=== PATIENT | female | born 1985 | race African-American/Black ===

== ENCOUNTER 2016-11-09 15:55 | Emergency (ER) | payer OTHER ==
[~2016-11-09] VITALS: Ht 170.2 cm; Wt 61.3 kg
[2016-11-09] MEDS ORDERED: PNV1TABL11 PO (16:11)
[2016-11-09 16:27] LABS: HEMOGLOBIN 12.7 g/dL (11.7-16.4)
[2016-11-09 16:43] LABS: ASPARTATE AMINO TRANSFERASE 14 U/L (15-37); BLOOD UREA NITROGEN 6 mg/dL (7-18)
[2016-11-09] MEDS ORDERED: SODIUM CHLORIDE FLUSH 10ML SYR IVF ONE (17:30)
[2016-11-09] MEDS ORDERED: SODIUM CHLORIDE 0.9% 1,000ML IVBOLUS ONE (17:30)
[2016-11-09 19:04] VITALS: BP 109/56
== END 2016-11-09 19:07 | disposition home or self-care (01) ==
LOC: ED 17:14
DX: O34.81 Maternal care for other abnormalities of pelvic organs, first trimester (principal); N83.202 Unspecified ovarian cyst, left side; Z3A.10 10 weeks gestation of pregnancy
CPT/HCPCS: 36415; 76801; 80053; 81003; 84702; 85025; 85610; 86901; 99285

== ENCOUNTER 2017-08-01 15:56 | Outpatient (CLI) | payer OTHER ==
[~2017-08-01] VITALS: Ht 170.2 cm; Wt 72.7 kg
[~2017-08-01 15:56] MED LIST: PNV1TABL11 PO
[2017-08-01 16:05] VITALS: BP 111/71
[2017-08-01 17:10] LABS: MICROSCOPIC NOT IND
== END 2017-08-01 18:07 | disposition home or self-care (01) ==
LOC: LDOP 15:56
PROVIDERS: ATTEND Obstetrics & Gynecology
DX: O26.893 Other specified pregnancy related conditions, third trimester (principal); R10.9 Unspecified abdominal pain; Z3A.31 31 weeks gestation of pregnancy
CPT/HCPCS: 36415; 59025; 81003; 82731; 87086; 99201; G0463

== ENCOUNTER 2017-09-16 22:08 | Outpatient (CLI) | payer OTHER ==
[~2017-09-16] VITALS: Ht 170.2 cm; Wt 77.3 kg
[2017-09-16 22:28] VITALS: BP 114/71
[2017-09-17] MEDS ORDERED: OXYcodone/APAP 10/325MG TABLET ONE (00:35)
[2017-09-17] MEDS ORDERED: OXYcodone/APAP 10/325MG TABLET PO ONE (01:00)
== END 2017-09-17 01:03 | disposition home or self-care (01) ==
LOC: LDOP 22:08
PROVIDERS: ATTEND Obstetrics & Gynecology
DX: O26.893 Other specified pregnancy related conditions, third trimester (principal); O62.9 Abnormality of forces of labor, unspecified; R10.9 Unspecified abdominal pain; Z3A.00 Weeks of gestation of pregnancy not specified
CPT/HCPCS: 59025; 99211; G0463

== ENCOUNTER 2017-09-17 12:39 | Inpatient (IN) | payer OTHER ==
[~2017-09-17] VITALS: Ht 170.2 cm; Wt 74.1 kg
[2017-09-17] MEDS: LACTATED RINGERS 1,000 ML IV SCH ×2 (12:57→14:49)
[2017-09-17] MEDS ORDERED: OXYTOCIN 30U/ 0.9% NaCL 500ML 500 ML IV ONE (12:57)
[2017-09-17] MEDS ORDERED: FENTANYL PF 100 MCG/2ML IVPush PRN (13:00)
[2017-09-17] MEDS ORDERED: FENTANYL PF 100 MCG/2ML IV PRN (13:00)
[2017-09-17] MEDS ORDERED: FENTANYL PF 100 MCG/2ML ONE ×2 (13:09→17:36)
[2017-09-17 13:16] VITALS: BP 125/79
[2017-09-17 13:26] LABS: BASOPHILS # (AUTO) 0.02 x10^3/uL (0-0.1); BASOPHILS % (AUTO) 0 % (0-1); EOSINOPHILS # (AUTO) 0.03 x10^3/uL (0-0.4); EOSINOPHILS % (AUTO) 0 % (1-7); LYMPHOCYTES # (AUTO) 1.72 x10^3/uL (1-3.4); LYMPHOCYTES % (AUTO) 15 % (22-44); MD NO; MEAN CORPUSCULAR HEMOGLOBIN 32.1 pg (27.0-34.8); MEAN CORPUSCULAR HGB CONC 33.7 g/dL (32.4-35.8); MEAN CORPUSCULAR VOLUME 95.5 fL (80-100); MEAN PLATELET VOLUME 7.4 fL (7.4-10.4); MONOCYTES # (AUTO) 0.89 x10^3/uL (0.2-0.8); MONOCYTES % (AUTO) 8 % (2-9); NEUTROPHILS # (AUTO) 8.72 x10^3/uL (1.8-6.8); NEUTROPHILS % (AUTO) 77 % (42-75); PLATELET COUNT 277 x10^3/uL (130-400); RED BLOOD COUNT 4.24 x10^6/uL (3.82-5.3); RED CELL DISTRIBUTION WIDTH 14.6 % (9.6-15.2)
[2017-09-17] MEDS ORDERED: OXYTOCIN 30U/ 0.9% NaCL 500ML 500 ML ONE ×2 (13:26→22:42)
[2017-09-17] MEDS ORDERED: LIDOCAINE 1%, 20ML ONE (13:26)
[2017-09-17] MEDS ORDERED: MISOPROSTOL 200 MCG TABLET ONE (13:26)
[2017-09-17] MEDS ORDERED: NEWBORN KIT ONE (13:26)
[2017-09-17] MEDS: PLEASE ENTER HEIGHT AND WEIGHT MC SCH ×2 (13:30→21:30)
[2017-09-17] MEDS ORDERED: FENTANYL/BUPIV./NS/PF 250 ML EPIDCONT SCH ×2 (13:33→14:47)
[2017-09-17] MEDS ORDERED: LACTATED RINGERS 1,000 ML IV SCH ×2 (13:33→14:47)
[2017-09-17] MEDS ORDERED: BUPIVACAINE/PF 0.25% ONE ×2 (13:55→13:56)
[2017-09-17] MEDS ORDERED: FENTANYL/BUPIV./NS/PF 250 ML EPIDCONT ONE (13:56)
[2017-09-17] MEDS ORDERED: LACTATED RINGERS 1,000 ML IVBOLUS PRN ×2 (14:00→15:00)
[2017-09-17] MEDS ORDERED: ONDANSETRON 2MG/ML, 2ML IVPush PRN (15:00)
[2017-09-17] MEDS ORDERED: NALOXONE 0.4 MG/ML, 1ML IVPush PRN (15:00)
[2017-09-17] MEDS ORDERED: DIPHENHYDRAMINE 50 MG/ML, 1ML IVPush PRN (15:00)
[2017-09-17] MEDS ORDERED: EPHEDRINE 50 MG/ML, 1ML IVPush PRN (15:00)
[2017-09-17] MEDS: OXYTOCIN 30U/ 0.9% NaCL 500ML 500 ML IV SCH (21:52)
[2017-09-17] MEDS ORDERED: MISOPROSTOL 200 MCG TABLET PR PRN (22:00)
[2017-09-17] MEDS ORDERED: MEASLES,MUMPS&RUBELLA VACC/PF 0.5 ML SQ PRN (22:00)
[2017-09-17] MEDS ORDERED: MAGNESIUM HYDROXIDE 8%, 30ML UDC PO PRN (22:00)
[2017-09-17] MEDS ORDERED: CALCIUM CARBONATE 500 MG TAB.CHEW PO PRN (22:00)
[2017-09-17] MEDS ORDERED: RHOGAM FROM BLOOD BANK 1 NOTE EA IM/IV ONE (22:00)
[2017-09-17] MEDS ORDERED: DIPH,PERTUSS(ACELL),TET VAC/PF NC IM-VACC PRN (22:00)
[2017-09-17] MEDS ORDERED: OXYcodone/APAP 5/325MG TABLET PO PRN (22:00)
[2017-09-17] MEDS ORDERED: ONDANSETRON 2MG/ML, 2ML IV PRN (22:00)
[2017-09-17] MEDS ORDERED: OXYcodone IR 5MG TABLET PO PRN (22:00)
[2017-09-17] MEDS ORDERED: IBUPROFEN 600 MG TABLET ONE (22:42)
[2017-09-17] MEDS: IBUPROFEN 600 MG TABLET PO PRN (23:00)
[2017-09-17 23:50] VITALS: BP 120/77
[2017-09-18 04:00] VITALS: BP 105/69
[2017-09-18] MEDS: IBUPROFEN 600 MG TABLET PO PRN ×3 (04:57→18:08)
[2017-09-18 06:05] LABS: BASOPHILS # (AUTO) 0.05 x10^3/uL (0-0.1); BASOPHILS % (AUTO) 0 % (0-1); EOSINOPHILS # (AUTO) 0.05 x10^3/uL (0-0.4); EOSINOPHILS % (AUTO) 0 % (1-7); LYMPHOCYTES # (AUTO) 1.75 x10^3/uL (1-3.4); LYMPHOCYTES % (AUTO) 10 % (22-44); MD NO; MEAN CORPUSCULAR HEMOGLOBIN 32.1 pg (27.0-34.8); MEAN CORPUSCULAR HGB CONC 33.9 g/dL (32.4-35.8); MEAN CORPUSCULAR VOLUME 94.6 fL (80-100); MEAN PLATELET VOLUME 7.9 fL (7.4-10.4); MONOCYTES # (AUTO) 1.32 x10^3/uL (0.2-0.8); MONOCYTES % (AUTO) 8 % (2-9); NEUTROPHILS # (AUTO) 14.32 x10^3/uL (1.8-6.8); NEUTROPHILS % (AUTO) 82 % (42-75); PLATELET COUNT 254 x10^3/uL (130-400); RED BLOOD COUNT 3.84 x10^6/uL (3.82-5.3)
[2017-09-18] MEDS: OXYTOCIN 30U/ 0.9% NaCL 500ML 500 ML IV SCH ×3 (07:52→19:14)
[2017-09-18 08:00] VITALS: BP 98/55
[2017-09-18] MEDS: DOCUSATE 100 MG CAPSULE PO PRN (08:23)
[2017-09-18] MEDS: PRENATAL VIT/IRON/FA 1 EACH TABLET PO SCH (08:23)
[2017-09-18 12:27] VITALS: BP 114/78
[2017-09-18 16:00] VITALS: BP 108/68
[2017-09-18 20:10] VITALS: BP 113/69
[2017-09-19] MEDS: IBUPROFEN 600 MG TABLET PO PRN ×2 (04:39→14:50)
[2017-09-19] MEDS: DOCUSATE 100 MG CAPSULE PO PRN (08:31)
[2017-09-19] MEDS: PRENATAL VIT/IRON/FA 1 EACH TABLET PO SCH (08:31)
[2017-09-19 08:45] VITALS: BP 103/68
[2017-09-19] MEDS ORDERED: IBUP-1222 PO (13:33)
== END 2017-09-19 15:45 | disposition home or self-care (01) | DRG 775 ==
LOC: LDOP 12:39 → LDIP 12:56 → 2NW 23:44
PROVIDERS: ADMIT Obstetrics & Gynecology; ATTEND Obstetrics & Gynecology
PROC: 10E0XZZ Delivery of Products of Conception, External Approach (ICD-10-PCS; principal; 2017-09-17)
PROC: 0UQGXZZ Repair Vagina, External Approach (ICD-10-PCS; 2017-09-17)
PROC: 3E0R3BZ Introduction of Anesthetic Agent into Spinal Canal, Percutaneous Approach (ICD-10-PCS; 2017-09-17)
PROC: 00HU33Z Insertion of Infusion Device into Spinal Canal, Percutaneous Approach (ICD-10-PCS; 2017-09-17)
DX: O99.02 Anemia complicating childbirth (principal); D57.1 Sickle-cell disease without crisis; O71.4 Obstetric high vaginal laceration alone; Z37.0 Single live birth; Z3A.38 38 weeks gestation of pregnancy
CPT/HCPCS: 36415; 82803; 85025; 86850; 86900; J3010; J2590; J7120

== ENCOUNTER → 2018-11-23 | Outpatient (CLI) | payer OTHER ==
[~2018-11-23] MED LIST changes: +IBUP-1222 PO; +None at This Time
[2018-11-23 11:49] LABS: BASOPHILS # (AUTO) 0.02 x10^3/uL (0-0.1); BASOPHILS % (AUTO) 1 % (0-1); EOSINOPHILS # (AUTO) 0.05 x10^3/uL (0-0.4); EOSINOPHILS % (AUTO) 1 % (1-7); LYMPHOCYTES # (AUTO) 2.04 x10^3/uL (1-3.4); LYMPHOCYTES % (AUTO) 52 % (22-44); MD NO; MEAN CORPUSCULAR HEMOGLOBIN 31.1 pg (27.0-34.8); MEAN CORPUSCULAR HGB CONC 33.1 g/dL (32.4-35.8); MEAN CORPUSCULAR VOLUME 93.9 fL (80-100); MEAN PLATELET VOLUME 7.6 fL (7.4-10.4); MONOCYTES # (AUTO) 0.22 x10^3/uL (0.2-0.8); MONOCYTES % (AUTO) 6 % (2-9); NEUTROPHILS # (AUTO) 1.58 x10^3/uL (1.8-6.8); NEUTROPHILS % (AUTO) 40 % (42-75); PLATELET COUNT 300 x10^3/uL (130-400); RED BLOOD COUNT 4.63 x10^6/uL (3.82-5.3); RED CELL DISTRIBUTION WIDTH 13.7 % (9.6-15.2)
[2018-11-23 11:58] LABS: MICROSCOPIC NOT IND
[2018-11-23 11:59] LABS: ALANINE AMINOTRANSFERASE 18 U/L (12-78); ANION GAP 5 mmol/L (5-15); CALCIUM 8.8 mg/dL (8.5-10.1); CHLORIDE 111 mmol/L (98-107); CREATININE 0.94 mg/dL (0.55-1.02)
[2018-11-23 12:03] LABS: ALKALINE PHOSPHATASE 65 U/L (45-117); BILIRUBIN,TOTAL 0.7 mg/dL (0.2-1.0); TOTAL PROTEIN 8.7 g/dL (6.4-8.2)
[2018-11-23 12:04] LABS: CULTURE INDICATED? NO
== END | disposition home or self-care (01) ==
LOC: STAR 10:45
PROVIDERS: ATTEND Obstetrics & Gynecology
DX: D27.1 Benign neoplasm of left ovary (principal); D27.0 Benign neoplasm of right ovary
CPT/HCPCS: 36415; 80053; 81003; 84702; 85025

== ENCOUNTER 2018-12-03 10:25 | Observation (INO) | payer OTHER ==
[~2018-12-03] VITALS: Ht 170.2 cm; Wt 65.2 kg
[~2018-12-03 10:25] MED LIST changes: +FENTANYL PF 250 MCG/5ML ONE
[2018-12-03] MEDS ORDERED: MIDAZOLAM 1 MG/ML, 2ML ONE (10:28)
[2018-12-03] MEDS ORDERED: PROMETHAZINE 25 MG/ML, 1ML IV PRN (10:30)
[2018-12-03] MEDS ORDERED: DIPHENHYDRAMINE 50 MG/ML, 1ML IVPush PRN (10:30)
[2018-12-03] MEDS ORDERED: MEPERIDINE/PF 25MG/0.5ML IVPush PRN (10:30)
[2018-12-03] MEDS ORDERED: PROCHLORPERAZINE 5 MG/ML, 2ML IV PRN (10:30)
[2018-12-03] MEDS ORDERED: HALOPERIDOL 5 MG/ML IV PRN (10:30)
[2018-12-03] MEDS ORDERED: METOPROLOL 1 MG/ML, 5ML IV PRN (10:30)
[2018-12-03] MEDS ORDERED: LABETALOL 5MG/ML, 20ML IV PRN (10:30)
[2018-12-03] MEDS ORDERED: HYDROmorphone 2 MG/ML, 1ML IVPush PRN (10:30)
[2018-12-03] MEDS ORDERED: hydrALAzine 20 MG/ML, 1ML IV PRN (10:30)
[2018-12-03] MEDS ORDERED: LACTATED RINGERS 1,000 ML IV SCH (10:53)
[2018-12-03] MEDS ORDERED: GABAPENTIN 300 MG CAPSULE PO STA (10:54)
[2018-12-03] MEDS ORDERED: ACETAMINOPHEN 500 MG TABLET PO STA (10:54)
[2018-12-03 11:18] LABS: HCG UR SG 1.015 (1.003-1.030)
[2018-12-03] MEDS ORDERED: THROMBIN 5,000 UNIT VIAL TP ONE (11:40)
[2018-12-03] MEDS ORDERED: BUPIVACAINE/PF 0.25% ONE (11:40)
[2018-12-03] MEDS ORDERED: SILVER NITRATE STICK TP ONE ×2 (11:41)
[2018-12-03] MEDS ORDERED: EPINEPHRINE 1 MG/ML, 1ML ONE (11:41)
[2018-12-03] MEDS ORDERED: KETOROLAC 30 MG/1 ML ONE (12:03)
[2018-12-03] MEDS ORDERED: BUPIVACAINE/PF-EPI 0.25% 1:200K INFIL ONE (13:01)
[2018-12-03] MEDS ORDERED: DEXAMETHASONE 4 MG/ML, 1ML ONE (13:27)
[2018-12-03] MEDS ORDERED: ONDANSETRON 2MG/ML, 2ML ONE (13:27)
[2018-12-03] MEDS ORDERED: GLYCOPYRROLATE 0.2MG/1ML, 5ML ONE (13:27)
[2018-12-03] MEDS ORDERED: PROPOFOL 10 MG/ML, 20ML ONE (13:27)
[2018-12-03] MEDS ORDERED: NEOSTIGMINE 1 MG/ML, 10ML ONE (13:27)
[2018-12-03] MEDS ORDERED: CEFAZOLIN 1,000 MG ONE (13:27)
[2018-12-03] MEDS ORDERED: SUCCINYLCHOLINE 20 MG/ML, 10ML ONE (13:27)
[2018-12-03] MEDS ORDERED: ROCURONIUM 10MG/ML,5ML ONE (13:27)
[2018-12-03] MEDS ORDERED: MEPERIDINE/PF 25MG/ML,1ML ONE (14:27)
[2018-12-03] MEDS ORDERED: FENTANYL PF 100 MCG/2ML ONE (14:27)
[2018-12-03] MEDS ORDERED: OXYcodone 5 MG/5 ML ORAL.SOL UDC ONE (14:27)
[2018-12-03] MEDS: OXYcodone 5 MG/5 ML ORAL.SOL UDC PO PRN (14:33)
[2018-12-03] MEDS: FENTANYL PF 100 MCG/2ML IV PRN ×3 (14:42→15:17)
[2018-12-03] MEDS ORDERED: OXYcodone/APAP 5/325MG TABLET ONE (17:11)
[2018-12-03] MEDS ORDERED: PROMETHAZINE 12.5 MG SUPP PR ONE (20:00)
[2018-12-03] MEDS ORDERED: morphine SULFATE 10 MG/ML, 1ML IV PRN (20:00)
[2018-12-03] MEDS ORDERED: ONDANSETRON 2MG/ML, 2ML IV PRN (20:00)
[2018-12-03] MEDS: OXYcodone/APAP 5/325MG TABLET PO PRN (20:14)
[2018-12-03] MEDS: KETOROLAC 30 MG/1 ML IV PRN (20:15)
[2018-12-03] MEDS: IBUPROFEN 600 MG TABLET PO SCH (21:00)
[2018-12-03] MEDS: LACTATED RINGERS 1,000 ML IV SCH (22:42)
[2018-12-03 23:47] VITALS: BP 101/61
[2018-12-04] MEDS: OXYcodone 5 MG/5 ML ORAL.SOL UDC PO PRN (00:22)
[2018-12-04] MEDS: OXYcodone/APAP 5/325MG TABLET PO PRN ×4 (00:23→16:47)
[2018-12-04] MEDS: LACTATED RINGERS 1,000 ML IV SCH ×2 (02:22→10:16)
[2018-12-04 04:08] VITALS: BP 100/51
[2018-12-04] MEDS: KETOROLAC 30 MG/1 ML IV PRN (04:11)
[2018-12-04] MEDS: IBUPROFEN 600 MG TABLET PO SCH ×3 (07:12→16:00)
[2018-12-04 07:20] VITALS: BP 96/54
[2018-12-04] MEDS ORDERED: OXYC-302 PO (08:57)
[2018-12-04] MEDS ORDERED: IBUP-1222 PO (08:57)
[2018-12-04 11:29] VITALS: BP 103/67
[2018-12-04 12:38] VITALS: BP 84/52
[2018-12-04 12:45] VITALS: BP 98/62
== END 2018-12-04 18:01 | disposition home or self-care (01) ==
LOC: OUT 10:25 → 4NOR 19:11 → OUT 19:26 → 4NOR 19:27
PROVIDERS: ADMIT Obstetrics & Gynecology; ATTEND Obstetrics & Gynecology
DX: N83.202 Unspecified ovarian cyst, left side (principal); N83.201 Unspecified ovarian cyst, right side; K66.0 Peritoneal adhesions (postprocedural) (postinfection)
CPT/HCPCS: 36415; 58662; 81025; 86850; 86900; 88112; 88305; 96374; 96375; G0378; J0171; J0330; J0690; J1100; J1885; J2175; J2250; J2405; J2704; J2710; J3010; J3490; J7120; 96361